=== PATIENT | male | born 1960 | race Caucasian/White ===

== ENCOUNTER → 2017-05-19 10:21 | Emergency (ER) | payer SELFPAY ==
[~2017-05-19 10:21] MED LIST: PPD test dose* 5 TU/0.1 ML TEST (*USE PPD ORDER SET*) ONE
== END | disposition home or self-care (01) ==
LOC: OHCORT 10:21
DX: Z11.1 Encounter for screening for respiratory tuberculosis (principal)

== ENCOUNTER → 2017-06-18 08:49 | Emergency (ER) | payer SELFPAY | END | disposition home or self-care (01) | LOC: OHCORT 08:49 | DX: Z02.1 Encounter for pre-employment examination (principal) ==